=== PATIENT | male | born 1990 | race African-American/Black ===

== ENCOUNTER → 2019-02-19 | Outpatient (CLI) | payer BC ==
[2019-02-21 03:07] LABS: HSV 1 TYPE SPECIFIC IGG <0.91 index (0.00-0.90)
== END | disposition home or self-care (01) ==
LOC: PUC 13:30
PROVIDERS: ATTEND Internal Medicine
DX: R10.9 Unspecified abdominal pain (principal)
CPT/HCPCS: 86592; 86593; 86694; 86695; 86696; 86780; 87086; 87491; 87591

== ENCOUNTER → 2019-02-19 | Outpatient (CLI) | payer BC | END | disposition home or self-care (01) | LOC: RADPV 14:49 | PROVIDERS: ATTEND Internal Medicine | DX: R10.9 Unspecified abdominal pain (principal) | CPT/HCPCS: 74018 ==